=== PATIENT | female | born 1940 | race Caucasian/White ===

== ENCOUNTER → 2017-11-06 12:20 | Outpatient (CLI) | payer MEDICARE, OTHER, SELFPAY ==
--- NOTE | 2017-11-06 12:24 | BI_ITS ---
MAMMOGRAPHY - BILATERAL SCREENING 3-D SOCRATES SYNTHESIS REASON FOR EXAM: Female, 77 years old. Bilateral Screening 3-D tomosynthesis PERTINENT HISTORY: No significant family history. TECHNIQUE: 2-D mammograms and 3-D Socrates synthesis of the breast (s) were performed. CAD was performed. COMPARISON: None. FINDINGS: The breast composition is composed of scattered fibroglandular density. Scattered benign calcifications are seen. No dense spiculated masses or suspicious microcalcifications are identified. No architectural distortion is identified. There is no skin thickening or retraction. There has been no significant change since the prior study. BI/SCREENING MAMM (CAD), BILAT IMPRESSION: No mammographic signs of malignancy. Routine yearly mammograms recommended. ASSESSMENT CATEGORY: BIRADS Category 2: Benign. A letter regarding these results will be sent to the patient by the facility within 30 days. FOLLOW UP RECOMMENDATION: Yearly follow up mammogram recommended. (A) Approximately 10% of breast cancers are not detected by mammography. A normal mammogram should not delay biopsy of a clinically suspicious abnormality. Electronically Signed: Alexis Pennington MD at 9:54 EDT , Service support ,
== END ==
DX: Z12.31 Encounter for screening mammogram for malignant neoplasm of breast (principal)
CPT/HCPCS: 77063; 77067

== ENCOUNTER → 2017-11-20 13:55 | Outpatient (CLI) | payer MEDICARE, OTHER, SELFPAY ==
[2017-11-20 13:59] LABS: Cytology, Body Fluid / CSF SEE PATHOLOGY REPORT
--- NOTE | 2017-11-20 13:59 | CYSPIN_PTH ---
PATIENT: DEDRA VARNER LOC: U#:[id number] AGE/SX: 84/F ROOM: RE11/20/[address]: REESE Morales : 1940 BED: DIS: SPEC #: [id number] RECD: 11/21/17 12:55 STATUS: TERESA FARRUKH #: [id number] SABRINA: 11/20/17 13:[address]: Analia Chandler NP DEPT: CYTOLOGY RECD BY: Valdemar Leger ENTERED: 11/21/17 12:56 SP TYPE: CYSPIN FL OTHR DR: Dr. Cynthia Giles, Tissues: Urine Procedures: Pap Stain (control) Special Stain Group II Cytospin Fluid HEADER OPERATION: Not noted PRE-OP DIAGNOSIS: Hematuria R31.9 TISSUE SUBMITTED: Urine for cytology DIAGNOSIS CYTOLOGY Urine for cytology (cytospin): Negative for malignant cells. AM:mildred 11/22/17 COMMENT The specimen primarily contains squamous epithelial cells, abundant bacterial colonies and scattered acute inflammatory cells. Clinical correlation is suggested. CYTOLOGY STUDY Slides are reviewed. CYTOLOGY GROSS Received is 90 ml of yellow clear fluid labeled with the patient's name and and designated per the requisition as urine. Submitted for cytology preparation. 11/21/17 TC:5 CPT: 90374
== END ==
PROVIDERS: Visit Provider Nurse Practitioner Adult Health
DX: R31.9 Hematuria, unspecified (principal)
CPT/HCPCS: 88108; 88313

== ENCOUNTER → 2018-11-27 10:37 | Outpatient (CLI) | payer MEDICARE, OTHER, SELFPAY ==
--- NOTE | 2018-11-27 10:41 | BI_ITS ---
MAMMOGRAPHY - BILATERAL SCREENING REASON FOR EXAM: Female, 78 years old. Routine annual screening examination. PERTINENT HISTORY: Non-contributory. TECHNIQUE: Digital bilateral breast socrates (3D mammographic acquisition) in the CC and MLO projections. 2-D mediolateral oblique (MLO) and craniocaudad (CC) views of both breasts were obtained. CAD: Full Field Digital Mammography with Computer Added Detection was performed. COMPARISON: Comparison is made with prior study dated November 06, 2017 and September 08, 2016. FINDINGS: Breast Composition: There are scattered areas of fibroglandular density. There are no dominant masses or suspicious calcifications. Stable small benign-appearing bilateral axillary lymph nodes. No other significant abnormalities are identified. There has been no significant change since the prior study. BI/SCREEN MAMM (CAD) W/SOCRATES BILAT IMPRESSION: Stable bilateral screening mammogram. Yearly follow-up mammogram recommended. (A) ASSESSMENT CATEGORY: BIRADS Category 2: Benign. A letter regarding these results will be sent to the patient by the facility within 30 days. Approximately 10% of breast cancers are not detected by mammography. A normal mammogram should not delay biopsy of a clinically suspicious abnormality. [id number] Electronically Signed: Jb Kennedy, at 12:49 EDT , Service support ,
== END ==
DX: Z12.31 Encounter for screening mammogram for malignant neoplasm of breast (principal)
CPT/HCPCS: 77063; 77067

== ENCOUNTER → 2019-12-15 | Outpatient (CLI) | payer MEDICARE, OTHER, SELFPAY ==
[2019-12-15 18:11] LABS: Mucous, Urine 0 SEEN /hpf (<or=2+); Red Blood Cells-Urine 0 SEEN /hpf (0-5); Squamous Epithelial Cells - UA 0 SEEN /hpf (5-10)
[2019-12-15 20:10] LABS: Color, Urine Yellow (Yellow); Glucose, Dipstick Normal (Normal); Ketone-Dipstick 5 mg/dl (Negative); Leukocyte Esterase-Dipstick 25 /ul (Negative); Nitrite-Dipstick Negative (Negative); Occult Blood-Urine 50 /ul (Negative); Protein-Dipstick Negative (Negative); Specific Gravity, Urine 1.015 (1.002-1.030); Urine Bilirubin Dipstick Negative (Negative); Urine Clarity Sl. Cloudy (Clear); Urine Urobilinogen Normal (Normal)
[2019-12-15 21:19] LABS: Bacteria 2+ /hpf (None Seen); White Blood Cells 5-10 SEEN /hpf (0-5)
== END | disposition home or self-care (01) ==
DX: R31.9 Hematuria, unspecified (principal)
CPT/HCPCS: 81001

== ENCOUNTER → 2020-01-09 10:28 | Outpatient (CLI) | payer MEDICARE, OTHER, SELFPAY ==
--- NOTE | 2020-01-09 10:39 | BI_ITS ---
MAMMOGRAPHY - BILATERAL SCREENING REASON FOR EXAM: Female, 79 years old. Routine annual screening examination. PERTINENT HISTORY: Non-contributory. TECHNIQUE: Digital bilateral breast socrates (3D mammographic acquisition) in the CC and MLO projections. 2-D mediolateral oblique (MLO) and craniocaudad (CC) views of both breasts were obtained. CAD: Full Field Digital Mammography with Computer Added Detection was performed. COMPARISON: Comparison is made with prior examination dated 11/27/2018 and 11/06/2017. FINDINGS: Breast Composition: There are scattered areas of fibroglandular density. There are no dominant masses or suspicious calcifications. Stable benign-appearing bilateral axillary. No other significant abnormalities are identified. There has been no significant change since the prior study. BI/SCREEN MAMM (CAD) W/SOCRATES BILAT IMPRESSION: Stable bilateral screening mammogram. Yearly follow-up mammogram recommended. (A) ASSESSMENT CATEGORY: BIRADS Category 2: Benign. A letter regarding these results will be sent to the patient by the facility within 30 days. Approximately 10% of breast cancers are not detected by mammography. A normal mammogram should not delay biopsy of a clinically suspicious abnormality. [id number] Electronically Signed: Jb Kennedy, at 12:26 EDT , Service support ,
== END ==
DX: Z12.31 Encounter for screening mammogram for malignant neoplasm of breast (principal)
CPT/HCPCS: 77063; 77067

== ENCOUNTER → 2021-02-23 10:48 | Outpatient (CLI) | payer MEDICARE, SELFPAY ==
--- NOTE | 2021-02-23 10:53 | BI_ITS ---
MAMMOGRAPHY - BILATERAL SCREENING REASON FOR EXAM: Female, 80 years old. Routine annual screening examination. PERTINENT HISTORY: Non-contributory. TECHNIQUE: Digital bilateral breast scorates (3D mammographic acquisition) in the CC and MLO projections. 2-D mediolateral oblique (MLO) and craniocaudad (CC) views of both breasts were obtained. CAD: Full Field Digital Mammography with Computer Added Detection was performed. COMPARISON: Comparison is made with prior study of 01/09/2020 and 11/27/2018. FINDINGS: Breast Composition: There are scattered areas of fibroglandular density. There are no dominant masses or suspicious calcifications. Stable small benign-appearing bilateral axillary lymph nodes. No other significant abnormalities are identified. There has been no significant change since the prior study. BI/SCRN MAMM (CAD)W/SOCRATES BILAT IMPRESSION: Stable bilateral screening mammogram. Yearly follow-up mammogram recommended. (A) ASSESSMENT CATEGORY: BIRADS Category 2: Benign. A letter regarding these results will be sent to the patient by the facility within 30 days. Approximately 10% of breast cancers are not detected by mammography. A normal mammogram should not delay biopsy of a clinically suspicious abnormality. [id number] Electronically Signed: Jb Kennedy MD at 12:23 EST , Service support ,
== END ==
DX: Z12.31 Encounter for screening mammogram for malignant neoplasm of breast (principal)
CPT/HCPCS: 77063; 77067

== ENCOUNTER → 2022-05-16 | Outpatient (CLI) | payer MEDICARE, SELFPAY ==
--- NOTE | 2022-05-16 10:52 | BI_ITS ---
MAMMOGRAPHY - BILATERAL SCREENING REASON FOR EXAM: Female, 81 years old. Routine annual screening examination. PERTINENT HISTORY: Non-contributory. TECHNIQUE: Digital bilateral breast socrates (3D mammographic acquisition) in the CC and MLO projections. 2-D mediolateral oblique (MLO) and craniocaudad (CC) views of both breasts were obtained. CAD: Full Field Digital Mammography with Computer Added Detection was performed. COMPARISON: Comparison is made with prior examination 02/23/2021 and 01/09/2020. FINDINGS: Breast Composition: There are scattered areas of fibroglandular density. There are no dominant masses or suspicious calcifications. Stable small benign-appearing bilateral axillary lymph nodes. No other significant abnormalities are identified. There has been no significant change since the prior study. BI/SCRN MAMM (CAD)W/SOCRATES BILAT IMPRESSION: Stable bilateral screening mammogram. Yearly follow-up mammogram recommended. (A) ASSESSMENT CATEGORY: BIRADS Category 2: Benign. A letter regarding these results will be sent to the patient by the facility within 30 days. Approximately 10% of breast cancers are not detected by mammography. A normal mammogram should not delay biopsy of a clinically suspicious abnormality. [id number] Electronically Signed: Jb Kennedy MD at 12:44 EST ,
== END | disposition home or self-care (01) ==
LOC: OPBI 10:49
DX: Z12.31 Encounter for screening mammogram for malignant neoplasm of breast (principal)
CPT/HCPCS: 77063; 77067

== ENCOUNTER → 2023-06-20 | Outpatient (CLI) | payer MEDICARE, SELFPAY ==
--- NOTE | 2023-06-20 14:59 | BI_ITS ---
MAMMOGRAPHY - BILATERAL SCREENING 3-D TOMOSYNTHESIS REASON FOR EXAM: Female, 82 years old. SCREENING PERTINENT HISTORY: No significant family history. TECHNIQUE: 2-D mammograms and 3-D Tomosynthesis of the breast (s) were performed. CAD was performed. COMPARISON: 05/16/2022 FINDINGS: The breast composition is composed of scattered fibroglandular density. Scattered benign calcifications are seen. No dense spiculated masses or suspicious microcalcifications are identified. No architectural distortion is identified. There is no skin thickening or retraction. There has been no significant change since the prior study. No change in bilateral benign rodriguez like and rim calcifications. BI/SCRN MAMM (CAD)W/SOCRATES BILAT IMPRESSION: No mammographic signs of malignancy. Routine yearly mammograms recommended. ASSESSMENT CATEGORY: BIRADS Category 2: Benign. A letter regarding these results will be sent to the patient by the facility within 30 days. FOLLOW UP RECOMMENDATION: Yearly follow up mammogram recommended. (A) Approximately 10% of breast cancers are not detected by mammography. A normal mammogram should not delay biopsy of a clinically suspicious abnormality. Electronically Signed: Valdemar North MD at 18:27 EST ,
--- NOTE | 2023-06-20 15:03 | BD_ITS ---
STUDY: DUAL ENERGY X-RAY ABSORPTIOMETRY / DXA REASON FOR EXAM: Female, 82 years old. M81.0 TECHNIQUE: Bone Mineral Density (BMD) measurements of lumbar spine and bilateral hips were obtained. COMPARISON: Comparison is made with prior study July 20, 2015. FINDINGS: Lumbar Spine (L1-L4): g/cm2 (0.861) / T-score (-1.4) / Z-score (1.3) Findings are suggestive of osteopenia with a low fracture risk. Left Femur Total: g/cm2 (0.719) / T-score (-1.8) / Z-score (0.4) Left Femoral Neck: g/cm2 (0.513) / T-score (-3.0) / Z-score (-0.6) Right Femur Total: g/cm2 (0.716) / T-score (-1.9) / Z-score (0.4) Right Femoral Neck: g/cm2 (0.5-3) / T-score (-2.9) / Z-score (-0.5) The T-Scores on the most recent prior examination were: Lumbar Spine (L1-L4): There has been improvement of bone density since the previous examination. Left Femur Total: which represents a worsening of 9.7%. Right Femur Total: which represents a worsening of 2.2%. BD/Dexa Bone Density Study IMPRESSION: The patient is considered osteoporotic as outlined below according to World Bigg Organization (WHO) criteria with a high fracture risk. There has been worsening of bone density since the previous examination. Reference Information: The T-score is the number of standard deviations above or below the standard which is normal for young adults at their peak bone mineral density. The World Health Organization (WHO) interprets the T-scores as follows: Above -1 Normal bone density Between -1 and -2.5 Osteopenia Equal to / or below -2.5 Osteoporosis As a practical clinical guideline, osteopenia may be graded as follows: Mild -1 through -1.5 Moderate -1.6 through -2.0 Severe -2.1 through -2.4 The Z-score is the number of standard deviations above or below age-matched controls. A Z-score of less than -1.5 would be considered abnormal. References: 1. NIH Osteoporosis and Related Bone Diseases www osteo.org 2. International Society for Clinical Densitometry www iscd.org 3. National Osteoporosis Foundation www nof.org Electronically Signed: Jb Kennedy MD at 15:10 EDT ,
--- OUTSIDE RECORDS SUMMARY | 2023-06-20 19:57 | XMS RPT_ITS | CCD ---
Author Name Unknown Address [address] [place] [address] Organization [facility] Care Team Providers [facility] Personnel Director Name Role Phone OJRGE RODAS, DR ANSARI Primary Care Physician JORGE RODSA, DR ANSARI Attending Unavailable JORGE RODAS, DR ANSARI Primary Care Unavailable JORGE RODAS, DR ANSARI Attending Unavailable JORGE RODAS, DR ANSARI Primary Care Unavailable Medications Current Medications Medication Drug Class(es) Dates Sig (Normalized) Sig (Original) calcium carbonate 1500 mg / cholecalciferol 800 unt oral tablet (1 source) Vitamin D Start: 05-18-2022 take 1 tablet by mouth once daily Caltrate 600 + D oral tablet Dose = 1 tab(s), Oral, Daily, 0 Refill(s) Start Date: 05/18/22 Status: Ordered dexlansoprazole 60 mg delayed release oral capsule (3 sources) Proton Pump Inhibitor Start: 11-08-2021 Dexilant 60 mg oral delayed release capsule Dose : 60 mg = 1 cap(s), Oral, qDay, # 90 cap(s), 3 Refill(s), Pharmacy: [id number], 150, cm, 11/08/21 10:00:00 EDT, Height, kg, 11/08/21 10:00:00 EDT, Dosing Weight Start Date: 11/08/21 Status: Ordered Completed/Discontinued Medications Medication Drug Class(es) Dates Sig (Normalized) Sig (Original) 1 ml denosumab 60 mg/ml prefilled syringe (3 sources) RANK Ligand Inhibitor Start: 05-09-2022 Prolia 60 mg/mL subcutaneous solution Dose : 60 mg = 1 mL, Subcutaneous, q6mo, # 1 mL, 0 Refill(s) Start Date: 05/09/22 Status: Ordered Problems Problem Classification Problem Date Documented Da te Episodic/Chronic Disorders of lipid metabolism (3 sources) Hyperlipidemia 04-30-2019 Chronic Esophageal disorders (3 sources) Gastroesophageal reflux disease 06-17-2018 Chronic Osteoporosis (3 sources) Osteoporosis 04-30-2019 Chronic Other ear and sense organ disorders (3 sources) Excessive cerumen in ear canal 04-30-2019 Episodic Results Test Name Value Interpretation Reference Range Facil ity Encounters Encounter Date Encounter Type Care Provider Facility Start: 12-07-2022 End: 12-07-[address] COTY PATEL DO Facility:[facility] Start: 05-24-2022 End: 05-25-[address] COTY PATEL DO Facility:[facility] Start: 05-24-2022 End: 05-24-[address] COTY PATEL DO [facility] Start: 10-21-2021 End: 10-21-[address] COTY PATEL DO [facility] Start: 03-24-2021 End: 03-24-[address] COTY PATEL DO [facility] Procedures Date Procedure Procedure Detail Performing Clinician Start: 06-17-[address] COTY PATEL DO Esophagogastroduodenoscopy D Alba PATEL DO Excision of bunion DR COTY PATEL DO Procedure on wrist joint DR COTY PATEL DO Immunizations Immunization Date Immunization Notes Care Provider Fa cility 11-17-[address] COTY PATEL DO [facility] [place] 04-22-2021 COVID-19, mRNA, LNP- S, PF, 100 mcg or 50 mcg dose; Translations: [Moderna COVID-19 Vaccine] DR COTY PATEL DO [facility] [place] 02-22-2021 influenza, high dose seasonal, preservative-free; Translations: [Fluad Quadrivalent PF ] DR COTY PATEL DO [facility] 06-16-2020 COVID-19, mRNA, LNP- S, PF, 100 mcg/ 0.5 mL dose; Translations: [Moderna COVID-19 Vaccine] DR COTY PATEL DO [facility] 05-19-2020 SARS-CoV-2 (COVID-19 ) mRNA-[id number] COTY PATEL DO [facility] Payers Date Payer Category Payer Private Health Insurance [id number] 1940 Unknown [id number] 1940 Unknown [id number] Social History Date Type Detail Facility Start: 06-17-2018 Never smoked t obacco (finding) [facility] Sex Assigned At Female [facility] Progress note 02-16-2021 Note Date & Type Note Facility 02-16-2021 Note HNO ID: [id number] Author: Maxime Bradley Service: ? Author Type: Physician Type: Progress Notes Filed: 02/17/2021 8:51 AM Note Text: Initial Podiatric Office Visit: Chief Complaint: This 80 year old female who presents with chief complaint:pain and swelling of left foot HPI Patient presents to clinic with complaint of pain and swelling of left foot. She states the pain and swelling just started 1.5 -2 weeks ago. The pain is located across the midfoot. Patient states the pain is 5/10. Her only treatment is rest and elevation. She has tried topical pain cream which has not really helped. Patient is not currently taking any medication for the pain. PAIN EVALUATION 02/16/2021 1534 Pain Level: 5 Pain Location: Foot-Left Description: Other: See comment unable to describe Duration Amount of Time: 1 Duration Units: Weeks Frequency: Intermittent Intervention/Comfort measure: Relaxation No results found for: HBA1C PCP: Santi Peña DO, DO PAST MEDICAL HISTORY Diagnosis Date - GERD (gastroesophageal reflux disease) - Osteoarthritis - Rheumatic fever twice prior to 1961: no hx murmur either time Current Outpatient Medications Medication Sig - ergocalciferol, vitamin D2, (VITAMIN D2 ORAL) Take by mouth. - zinc sulfate (ZINC-15 ORAL) Take by mouth. - multivitamin (DAILY VITAMIN) ORAL tablet Take 1 tablet by mouth once daily. - imipramine HCl 25 mg ORAL tablet take 1 or 2 tabs at bedtime PRN - omeprazole (PRILOSEC) 20 mg capsule Take 1 capsule by mouth twice daily. (Patient not taking: Reported on 02/16/2021 ) - Jqqlpsey-Vjtim-Dqw 149-Hyal Ac (GLUCOS CHOND CPLX ADVANCED) 750-100-125 mg ORAL Tab Take by mouth. once daily - zolpidem (AMBIEN) 5 mg tablet Take one(1) tablet at bedtime as needed for insomnia. (Patient not taking: FOR INSOMNIA) - aspirin, enteric coated (ECOTRIN LOW STRENGTH) 81 mg EC tablet Take one(1) tablet daily. (Patient not taking: DO NOT crush. ) - Niacin 250 mg ORAL tablet Take one(1) tablet daily. (Patient not taking: Take one(1) tablet daily.) No current facility-administered medications for this visit. ALLERGIES Allergen Reactions - Percocet [Oxycodone* GI Upset PAST SURGICAL HISTORY Procedure Laterality Date - CARPAL TUNNEL 2008 left arm - LEFT HEART CATH FAMILY HISTORY Problem Relation Age of Onset - None Mother natural causes - Emphysema Father natural causes - other (Pancreatic cancer) Brother Social History Tobacco Use - Smoking status: Never Smoker - Smokeless tobacco: Never Used Substance Use Topics - Alcohol use: Yes Comment: rare - Drug use: No REVIEW OF SYSTEMS GENERAL: Negative for Malaise, significant weight loss, fever RESPIRATORY: Negative for cough, wheezing and shortness of breath CARDIOVASCULAR: Negative for chest pain, leg swelling and palpitations GI: Negative for abdominal discomfort, blood in stools or black stools and change in bowel habits : Negative for dysuria, frequency and incontinence MUSCULOSKELETAL: Negative for joint pain or swelling, back pain, and muscle pain. SKIN: Negative for lesions, rash, and itching. HEMATOLOGY/LYMPHOLOGY Negative for prolonged bleeding, bruising easily, and swollen nodes. ENDOCRINE: Negative for cold or heat intolerance, polyuria, polydipsia and goiter. NEURO: negative Physical Exam: Constitutional: Pt is a well developed 80 year old female who is alert, oriented and cooperative Eyes: Following during examination. No redness or drainage. Respiratory: RR normal and nonlabored. Even breathing. No evidence of distress or shortness of breath. Psychology: Patient is engaged during conversation. Normal affect and mood. Does not appear depressed or anxious during encounter. Vascular: Dorsalis pedis and posterior tibial pulses palpable as b/l Capillary Fill time < 5 seconds to digits 1-5 b/l Skin temperature warm to warm proximal to distal b/l Hair growth present to digits Neurological: intact light touch/epicritic sensation b/l intact protective sensation no significant neurological deficits Dermatological: Nails 1-5 b/l appear normal. Webspaces clean and dry 1-4 b/l. Skin appears well hydrated and supple. good color, texture, turgor. No open lesions present. No callosities present. Musculoskeletal/Orthopaedic: Patient has pain to palpation of left midtarsal joint Foot type is pronated structurally AJ ROM is full with knee extended and flexed 1st MPJ is full when loaded and no pain or crepitus are noted with ROM. MTJ, STJ are full and free of pain and crepitus. +5/5 muscle strength dorsiflexion, plantarflexion, inversion, eversion b/l Radiographs: 3 views left foot ordered February 16, 2021: I have personally reviewed and interpreted these XR myself: No acute findings. There is arthritis of left midfoot ASSESSMENT: (M19.079) Arthritis of foot (primary encounter diagnosis) PLAN: (more content not included)... [facility] Progress note 02-16-2021 Note Date & Type Note Facility 11-03-2021 Note HNO ID: [id number] Author: Sherrie Barlow Ma Service: ? Author Type: ? Type: Progress Notes Filed: 02/17/2021 8:51 AM Note Text: AMB ROOMING INTAKE FLOWSHEET DATA Risk Screening Do you have concerns about personal safety or safety in the home?: No Pain Pain Level: 5 Pain Location: Foot-Left Description: Other: See comment (unable to describe) Duration Amount of Time: 1 Duration Units: Weeks Frequency: Intermittent Intervention/Comfort measure: Relaxation Patient presents with: Left Foot - New, Pain, Swelling [facility] Progress note 02-16-2021 Note Date & Type Note Facility 02-16-2021 Note HNO ID: [id number] Author: RT Nii(R) Service: ? Author Type: Technologist Type: Progress Notes Filed: 02/16/2021 3:30 PM Note Text: Radiology Service Progress Note PATIENT NAME: Angela Perez DATE OF SERVICE: February 16, 2021 TIME: 3:29 PM PATIENT IDENTITY VERIFICATION COMPLETED USING TWO (2) IDENTIFIERS: Name and Date of confirmed by patient verbally. FALL SCREENING: Has the patient had 2 falls in the last year or 1 fall with injury or currently using an Ambulatory Assistive Device (Walker, Cane, Wheelchair, Crutches, etc.)? No PATIENT GENDER DATA: Female. status: : No status: NO. PATIENT RELEVANT IMPLANT DATA REVIEWED: Not Applicable RADIOLOGY DEPARTMENT: General X-ray: Exam(s) Completed: Lower Extremity X-Ray(s): Foot, Left and Wt. Bearing PERIPHERAL IV DATA: Not applicable SIGNED BY: RT Nii(R) February 16, 2021 3:29 PM [facility] Evaluation + Plan note Radiology Note Date & Type Note Facility Evaluation + Plan note Future Appointments Appointment Date:03/29/2021 02:00:00 PM Scheduled Provider: Location:[facility] Appointment Type:PC Nurse Future Scheduled TestsMA Mammo Screening Bilateral w/ Jimbo 01/18/21 [facility] Evaluation + Plan note Radiology Note Date & Type Note Facility Evaluation + Plan note Future Appointments Appointment Date:11/08/2021 10:00:00 AM Scheduled Provider:COTY PATEL DO Location:[facility] Appointment Type:PC OV Future Scheduled TestsMA Mammo Screening Bilateral w/ Jimbo 01/18/21 [facility] Evaluation + Plan note Note Date & Type Note Facility Evaluation + Plan note Future Appointments Appointment Date:06/01/2022 11:15:00 AM Scheduled Provider: Location:[facility] Appointment Type:PC Nurse Injection Appointment Date:11/21/2022 09:00:00 AM Scheduled Provider:COTY PATEL DO Location:[facility] Appointment Type:PC OV [facility] Hospital course Narrative Note Date & Type Note Facility Hospital course Narrative No data available for this section [facility] Hospital Discharge instructions Note Date & Type Note Facility Hospital Discharge instructions No data available for this section [facility] Progress note Note Date & Type Note Facility Progress note No data available for this section [facility] Summary Purpose Family History No Family History Records FoundNo Family History Records Found Advance Directives No Advanced Directives Records FoundNo Advanced Directives Records Found Additional Source Comments INFORMATION SOURCE (unrecogn ized section and content) DATE CREATED AUTHOR AUTHOR'S ORGANIZ ATION 12/11/2022 [facility] ([place]) Care Team (unrecognized sect ion and content) Care Team Personnel Name: COTY PATEL DO Position: P4 Physician - Primary Care Med Service: Active Provider Member Role: Primary Care Physician Address: Address: [address] [place] [address] Care Team Related Persons Name: KAL PEREZ Care Team Personnel Name: COTY PATEL DO Position: P4 Physician - Primary Care Member Role: Primary Care Physician Address: Address: [address] [place] [address] Care Team Related Persons Name: KAL PEREZ FOR RECORDS PERTAINING TO PATIENTS WHO ARE OR HAVE BEEN ENROLLED IN A CHEMICAL DEPENDENCY/SUBSTANCEABUSE PROGRAM, SOME INFORMATION MAY BE OMITTED. This clinical summary was aggregated from multiple sources. Caution should be exercised in using it in the provision of clinical care. This summary normalizes information from multiple sources, and as a consequence, information in this document may materially change the coding, format and clinical context of patient data. In addition, data may be omitted in some cases. CLINICAL DECISIONS SHOULD BE BASED ON THE PRIMARY CLINICAL RECORDS. [facility] [employer] [facility]. provides no warranty or guarantee of the accuracy or completeness of information in this document.
== END | disposition home or self-care (01) ==
LOC: OPBI 14:57
DX: Z12.31 Encounter for screening mammogram for malignant neoplasm of breast (principal); M81.0 Age-related osteoporosis without current pathological fracture
CPT/HCPCS: 77063; 77067; 77080

== ENCOUNTER → 2023-11-24 | Outpatient (CLI) | payer MEDICARE, SELFPAY ==
[2023-11-24 11:12] LABS: Hematocrit 36.9 % (37-47); Hemoglobin 11.9 g/dL (12.0-15.0); Mean Corp Hgb Conc 32.2 g/dL (32-36); Mean Corpuscular Hgb 29.6 pg (27.0-32.0); Mean Corpuscular Volume 91.8 fL (81-99); Mean Platelet Vol. 11.1 fl (6.2-12.0); Platelet Count 336 K/mm3 (150-450); RBC Distribution Width CV 14.4 % (11.6-14.6); RBC Distribution Width SD 48.3 fl (35.1-43.9); Red Blood Count 4.02 M/mm3 (4.2-5.4); White Blood Count 6.5 K/mm3 (4.4-11.0)
[2023-11-24 11:42] LABS: AST(SGOT) 20 U/L (15-37); Alanine Aminotransfer ALT/SGPT 23 U/L (13-56); Albumin, Serum 3.4 g/dL (3.2-5.0); Alkaline Phosphatase 53 U/L (45-117); Anion Gap 4 (5-15); BUN 17 mg/dL (7-18); BUN/Creat Ratio 20.8 RATIO (10-20); Calcium,Total 8.8 mg/dL (8.5-10.1); Chloride 107 mmol/L (98-107); Creatinine, Serum 0.82 mg/dL (0.55-1.02); EST Glomerular Filtration Rate 71 mL/min (>60); Est Glom Filt Rate - Afr Amer 86 mL/min (>60); Globulin 3.4 g/dL (2.2-4.2); Glucose 94 mg/dL (74-106); Potassium 3.9 mmol/L (3.5-5.1); Protein, Total 6.8 g/dL (6.4-8.2); Sodium Level 139 mmol/L (136-145)
== END | disposition home or self-care (01) ==
LOC: LAB 10:35
PROVIDERS: Referring Provider Nurse Practitioner Primary Care; Visit Provider Nurse Practitioner Primary Care
DX: R42 Dizziness and giddiness (principal)
CPT/HCPCS: 36415; 80053; 85027

== ENCOUNTER 2025-01-21 10:30 | Outpatient (RCR) | payer MEDICARE, SELFPAY ==
--- NOTE | 2024-12-08 10:36 | HP.PTEVAL_ITS ---
Patient's Visit Information Visit Information Visit Information: DEDRA VARNER is a 84 year old F referred to Physical Therapy by Dr. Abdiel Guillaume MD with a diagnosis of Hx of lumbar fusion, lumbar radiculopathy. Date of Evaluation: 12/08/24 Physical Therapist: Abdiel Rodrigez, DPT, OCS, CSCS Visit Plan Frequency: 2x /Week Duration: 4-6 Weeks Plan: 2x/week for 4-6 weeks for... IE HEP: pelvic tilt posterior 20x, trunk rotation 20x, SKC 10x all 2+x/day, NS position in standing. treat with NS core adn pelvis and hip strength to functional strength to HEP with pics. work on supine to sit trasnfer. Subjective Subjective: Had R leg sciatica dn back pain for a year and then had fusion about a year ago. Was doing well until 2 months when R quad started hurting possibly after carrying stuff up and down steps which did not bother her previously. Went back to Dr. Guillaume and sent for PT. Xray of nck showed OA. None to LB lately. Walking makes her R quad sore. Feels good sitting still. Walking hurts as soon as she stands up . No back pain. No numbness or tingling, no weakness or giving out. Sleep is Normal for her. 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 Puzzles and cross stich are OK but sedentary. No regular exercises except walking for activity. No falls. Pain R quad: Pain Intensity (Out of 10): 0 Pain Intensity Range: 0 and 5 Comment: 0 sitting, 5 walking Objective Objective: Walks with some minor R antalgia, No AD I. Trasnfers is weak chair and bed but I with increased time. Steps require UE rail but rciprocal and I. LB AROM ext reporduces leg discomfort R anteriorly, SB are full and painfree, flexion is full, ext mod limited. PA pressure no problem, no tenderness in paraspinals or R quad, HS. Decent flexibility but poor pelvic movement and conrol. Very weak. reflexes 2/3 patella dn achills B. Sensation LE WNL to gross light touch B. Strength is max weeak core and hips at 3 in flexion, ext and hip rotations and flexion adn abd and ext. on R and 3+ L. knees 4-/5, ankles 4-/5. - slump, - SLR Balance/Special Test Scores Functional Gait Assessment Score: 26 % Disability: 13.3400 Lower Extremity Functional Score: 48 Goals Goal 1:: I appropriate NS and core strength ex to limit future problems Goal Time Frame: 4-6 Weeks Goal 2:: Pain in r LE 1/10 at worst and manageable with gait. Goal Time Frame: 4-6 Weeks Goal 3:: walk 20 minutes without leg pain or antalgia Goal Time Frame: 4-6 Weeks Goal 4:: trasnfer off back without hesitation or pain showing fair strength Goal Time Frame: 4-6 Weeks Goal 5:: LEFS score 55 Goal Time Frame: 4-6 Weeks Rehabilitation Potential Physical Therapy Diagnosis: R leg pain likely radicular and possibly stenotic and limiting comfortable funciton. Rehabilitation Potential: Fair Anticipated Interventions Patient/Client Instruction: Educate patient on: Condition and Plan of Care For the Purpose of:: To decrease pain, To increase ROM, To improve muscle performance and motor function, To increase tolerance to activity/condition/position and To improve gait and locomotor functions Therapeutic Exercise to Include: Strength training, Postural training, Flexibilty training, Passive ROM, Active ROM and Dynamic Lumbar Stabilization For the Purpose of:: To decrease pain, To increase ROM, To improve nutrient delivery to tissue, To improve muscle performance and motor function, To increase tolerance to activity/condition/position and To improve gait and locomotor functions Thermo therapy (hot pack): Yes For the Purpose of:: To decrease pain Text: Thank you for the opportunity to evaluate your patient. For Medicare and Medicare HMO plans, please review the plan of care and approve it. It will need to be FAXED BACK to us at [phone] for Medicare purposes. For Medicare only, by signing this I certify the plan of care. Please let me know if there are questions or concerns regarding this plan of care. Physician Signature: Date:
--- NOTE | 2025-01-21 11:20 | HP.PTDCSUM ---
Discharge Summary D/C summary: It has been my pleasure to treat DEDRA VARNER referred by Dr. Abdiel Guillaume MD, with the diagnosis of Hx of lumbar fusion, lumbar radiculopathy for a total of 12 visit(s). Discharge Date: 01/21/25 Please see the following information for a summary of their discharge status. Subjective Subjective: Not getting any better. Taking advil for pain. 2/10 today with advil. Would be 4-5 without advil wheen walking. No pain with sitting. NS does not seem to help. MRI will be Novembr 3-4. Limited on feet at home, has to take frquent breaks, avoiding walking for fitness. Housework can get painful, avoids sweeping. Injections: not since surgery. Pain R quad: Pain Intensity (Out of 10): 0 LB: Pain Intensity (Out of 10): 2 Overall Improvement % Improvement: 0 Objective Objective/Function: walks gingerly with short steps but no pain today. ROM ext and flexion not painful, SB without pain. Trasnfer on bed is sometimes painful but I. Goals Goal 1:: I appropriate NS and core strength ex to limit future problems Goal Progress: Goal Met Goal 2:: Pain in r LE 1/10 at worst and manageable with gait. Goal Progress: Not Progressing Goal 3:: walk 20 minutes without leg pain or antalgia Goal Progress: 3 minutes. Goal 4:: trasnfer off back without hesitation or pain showing fair strength Goal Progress: Goal Met Goal 5:: LEFS score 55 Goal Progress: Progressing Plan Plan: d/c, pt wishes to wait until after MRI to decide on if wants aquatic therapy. D/C Information Discharge Comments: pt to continue HEP, go on vacation and then have MRI. Will fu with doctor, Aquatic therapy should be an option for future if no other solutions. d/c sentence: If there are questions or concerns regarding this patient's physical therapy, please feel free to call me at [phone]. Thank you for the referral of this patient. Sincerely, Abdiel Rodrigez, DPT, OCS, CSCS Balance/Gait/Functional tests Balance/Special Test Scores Functional Gait Assessment Score: 26 % Disability: 13.3400 Lower Extremity Functional Score: 50 Improvement % Improvement: 0
== END 2025-01-21 19:00 | disposition home or self-care (01) ==
LOC: PT 10:30
PROVIDERS: PCP Family Medicine; Referring Provider Orthopaedic Surgery Orthopaedic Surgery of the Spine; Visit Provider Orthopaedic Surgery Orthopaedic Surgery of the Spine
DX: M54.16 Radiculopathy, lumbar region (principal); M43.16 Spondylolisthesis, lumbar region; Z98.1 Arthrodesis status
CPT/HCPCS: 97110; 97161; 97164; 97530

== ENCOUNTER → 2025-03-03 | Outpatient (CLI) | payer MEDICARE, SELFPAY ==
--- NOTE | 2025-03-03 17:26 | RAD_ITS ---
PROCEDURE: CERV SPINE OBL/FLEX/EXT COMP 03/03/2025 REASON FOR EXAM: NECK PAIN TECHNIQUE: Procedure Code: RADSPCFE Modality: DX Procedure: CERV SPINE OBL/FLEX/EXT COMP COMPARISON: None FINDINGS: There is grade 1 spondylolisthesis at C2-3, 0.2 cm with flexion, 0 cm with extension. There is grade 1 spondylolisthesis at C3-4, 0.3 cm with flexion, 0.2 cm with extension. There is grade 1 retrolisthesis at C6-7, 0.5 cm with flexion and 0.4 cm spondylolisthesis with extension. There is degenerative disc disease from C4-7. Soft tissues are unremarkable. Osteopenia is noted. There is moderate facet sclerosis. RAD/Cerv Spine Obl/Flex/Ext Comp IMPRESSION: There is grade 1 spondylolisthesis at C2-3, 0.2 cm with flexion, 0 cm with exte nsion. There is grade 1 spondylolisthesis at C3-4, 0.3 cm with flexion, 0.2 cm with extension. There is grade 1 retrolisthes is at C6-7, 0.5 cm with flexion and 0.4 cm spondylolisthesis with extension. There is degenerative disc disease from C4-7. Reading Location: [facility]
== END | disposition home or self-care (01) ==
LOC: MTRAD 17:23
PROVIDERS: PCP Family Medicine; Referring Provider Family Medicine; Visit Provider Family Medicine
DX: M54.2 Cervicalgia (principal)
CPT/HCPCS: 72052